=== PATIENT | male | born 1955 | race Caucasian/White ===

== ENCOUNTER 2022-04-26 11:00 | Emergency (ER) | payer MEDICARE, OTHER ==
[2022-04-26] MEDS ORDERED: Sodium Chloride 0.9% 10 ML Syringe FLUSH PRN (11:46)
[2022-04-26] MEDS ORDERED: Sodium Chloride 0.9% 1,000 ML IV SCH (12:00)
== END 2022-04-26 13:11 | disposition home or self-care (01) ==
LOC: JP.ED 11:00
DX: R55 Syncope and collapse (principal); E86.0 Dehydration; E87.1 Hypo-osmolality and hyponatremia; E83.42 Hypomagnesemia; I10 Essential (primary) hypertension; Z86.16 Personal history of COVID-19; Z79.82 Long term (current) use of aspirin; Z79.899 Other long term (current) drug therapy
CPT/HCPCS: 36415; 80053; 83735; 85025; 93005; 93010; 96360; 99283; 99284; J3490; J7030

== ENCOUNTER 2023-03-22 13:52 | Observation (INO) | payer MEDICARE, OTHER ==
[2023-03-22] MEDS ORDERED: Sodium Chloride 0.9% 10 ML Syringe FLUSH PRN ×2 (14:18→18:57)
[2023-03-22] MEDS ORDERED: cloNIDine 0.1 MG Tab PO ONE (14:21)
[2023-03-22 14:57] LABS: ESTIMATED GFR 74 mL/min (>60); TROPONIN I HIGH SENSITIVITY 9.2 pg/mL (<=60.3)
[2023-03-22] MEDS ORDERED: Iopamidol 755 Mg/ML 100 ML Bottle IV SCH (15:00)
[2023-03-22] MEDS ORDERED: Sodium Chloride 0.9% 75 ML IV SCH (15:00)
[2023-03-22] MEDS ORDERED: Clopidogrel 75 MG Tab PO ONE (17:20)
[2023-03-22] MEDS ORDERED: Sodium Chloride 0.9% 500 ML IV ONE (17:37)
[2023-03-22] MEDS ORDERED: Acetaminophen 325 MG Tab PO PRN (18:57)
[2023-03-22] MEDS ORDERED: Ondansetron 4 MG/2 ML SDV IV PRN (18:57)
[2023-03-22] MEDS: Clopidogrel 75 MG Tab PO SCH (19:34)
[2023-03-22] MEDS ORDERED: Enoxaparin 40 MG/0.4 ML Syringe SUBCUT SCH (21:00)
[2023-03-22] MEDS ORDERED: atorvaSTATin 20 MG Tab PO SCH (21:00)
[2023-03-23] MEDS: Clopidogrel 75 MG Tab PO SCH (08:09)
[2023-03-23] MEDS ORDERED: Aspirin 81 MG Tab.Chew PO SCH (09:00)
[2023-03-23] MEDS ORDERED: Hydrochlorothiazide 25 MG Tab PO SCH (09:00)
[2023-03-23] MEDS ORDERED: Lisinopril 20 MG Tab PO SCH (09:00)
[2023-03-23] MEDS ORDERED: Gadoteridol 279.3 MG/ML 20 ML SDV IV SCH (12:15)
[2023-03-23] MEDS ORDERED: atorvaSTATin 20 MG Tab PO SCH (21:00)
== END 2023-03-23 15:30 | disposition home or self-care (01) ==
LOC: JP.ED 13:52 → JP.ICU 17:09
PROVIDERS: ADMIT Hospitalist; ATTEND Internal Medicine
DX: G45.9 Transient cerebral ischemic attack, unspecified (principal); I72.0 Aneurysm of carotid artery; I65.23 Occlusion and stenosis of bilateral carotid arteries; I63.412 Cerebral infarction due to embolism of left middle cerebral artery; I10 Essential (primary) hypertension; R26.89 Other abnormalities of gait and mobility; R41.0 Disorientation, unspecified; G40.909 Epilepsy, unspecified, not intractable, without status epilepticus; Z79.82 Long term (current) use of aspirin; Z79.02 Long term (current) use of antithrombotics/antiplatelets; Z79.899 Other long term (current) drug therapy; Z20.822 Contact with and (suspected) exposure to COVID-19
CPT/HCPCS: 36415; 70450; 70496; 70498; 70553; 70553-26; 80053; 82947; 84484; 85025; 85610; 85730; 93005; 93010; 93306; 96360; 96372; 97161-GP; 99223; 99239; 99285; 99285-25; A9270-GY; A9579; G0378; J1650; J3490; J7040; Q9967; U0002